=== PATIENT | female | born 1965 | race African-American/Black ===

== ENCOUNTER 2020-12-19 08:14 | Emergency (ER) | payer MEDICARE, MEDICAID ==
[~2020-12-19] VITALS: Ht 149.9 cm; Wt 43.9 kg
[2020-12-19] MEDS ORDERED: ONDANSETRON 2MG/ML, 2ML ONE (08:48)
[2020-12-19] MEDS ORDERED: ERGO500018 PO (08:49)
[2020-12-19] MEDS ORDERED: GABA-827 PO (08:49)
[2020-12-19] MEDS ORDERED: FLUT16SP24 NAS (08:49)
[2020-12-19] MEDS ORDERED: LATA7.5D OP (08:49)
[2020-12-19] MEDS ORDERED: CYCL5TAB PO (08:49)
[2020-12-19] MEDS ORDERED: ALBU90AE INH (08:49)
[2020-12-19] MEDS ORDERED: LORA10TA41 PO (08:49)
[2020-12-19] MEDS ORDERED: TRAZ-96 PO (08:49)
[2020-12-19] MEDS ORDERED: ONDANSETRON 2MG/ML, 2ML IVPush ONE (09:00)
--- NOTE | 2020-12-19 09:00 | NUR ---
PT STATES SHE HAD CRUZ AND SHRIMP TWO NIGHTS AGO AND FEELS LIKE SOMETHING STUCK IN ESOPHAGUS. PT ABLE TO SWALLOW SALIVA, BUT IT IS PAINFUL.
[2020-12-19 09:34] LABS: BASOPHILS % (AUTO) 1 % (0-1); EOSINOPHILS % (AUTO) 1 % (1-7); LYMPHOCYTES % (AUTO) 15 % (22-44); MEAN CORPUSCULAR HEMOGLOBIN 26.9 pg (27.0-34.8); MEAN CORPUSCULAR HGB CONC 32.4 g/dL (32.4-35.8); MEAN PLATELET VOLUME 8.7 fL (7.4-10.4); MONOCYTES % (AUTO) 8 % (2-9); NEUTROPHILS % (AUTO) 75 % (42-75); PLATELET COUNT 367 x10^3/uL (130-400); RED BLOOD COUNT 5.07 x10^6/uL (3.82-5.3); RED CELL DISTRIBUTION WIDTH 13.5 % (9.6-15.2)
[2020-12-19 09:44] LABS: ALANINE AMINOTRANSFERASE 14 U/L (12-78); ALBUMIN 3.8 g/dL (3.4-5.0); ANION GAP 6 mmol/L (5-15); CHLORIDE 101 mmol/L (98-107); CREATININE 0.67 mg/dL (0.55-1.02)
[2020-12-19 09:49] LABS: ALKALINE PHOSPHATASE 86 U/L (45-117); BILIRUBIN,TOTAL 0.6 mg/dL (0.2-1.0); TOTAL PROTEIN 8.5 g/dL (6.4-8.2); TROPONIN I < 0.015 ng/mL (0.000-0.045)
[2020-12-19 10:00] VITALS: BP 140/88
[2020-12-19 10:29] LABS: MD SCAN
--- NOTE | 2020-12-19 10:31 | NUR ---
PT SLEEPING, NO DISTRESS WHILE AWAITING RE-EVAL
--- NOTE | 2020-12-19 10:56 | NUR ---
TO RADIOLOGY FOR XRAY
--- NOTE | 2020-12-19 10:57 | NUR ---
RYLIE: TO RAD FOR ESOPHAGRAM
== END 2020-12-19 11:49 | disposition home or self-care (01) ==
LOC: ED 09:00
DX: R13.10 Dysphagia, unspecified (principal); R94.31 Abnormal electrocardiogram [ECG] [EKG]
CPT/HCPCS: 36415; 71045; 74220; 80053; 83690; 84484; 85025; 93005; 96374; 99285; J2405